=== PATIENT | female | born 1965 | race Native Hawaiian/Other Pacific Islander ===

== ENCOUNTER → 2022-06-24 07:47 | Outpatient (CLI) | payer OTHER, SELFPAY ==
--- NOTE | 2022-06-24 07:51 | DI.MG.S_ITS ---
BILATERAL DIGITAL SCREENING MAMMOGRAM 3D/2D WITH CAD: 06/24/2022 CLINICAL: Routine screening. Comparison is made to exam dated: 11/23/2019 mammogram - [facility]. There are scattered areas of fibroglandular density in both breasts (category b / 25%-50% glandular tissue). Current study was also evaluated with a Computer Aided Detection (CAD) system. No significant masses, calcifications, or other findings are seen in either breast. There has been no significant interval change. IMPRESSION: NEGATIVE There is no mammographic evidence of malignancy. A 1 year screening mammogram is recommended. Based on the Tyrer Cuzick model (a risk assessment model) the patient's lifetime risk is 8.2% and her 10 year risk is 2.5%. According to the ACR, ACS, and NCCN guidelines, an annual breast MRI exam along with mammogram is recommended if the patient's lifetime risk is 20% or greater. This exam was interpreted at Station ID: [id number]. NOTE: For mammograms, a report in lay terms will be sent to the patient. Approximately 15% of breast malignancies will not be visualized mammographically. In the management of a palpable breast mass, a negative mammogram must not discourage biopsy of a clinically suspicious lesion. Electronically Signed By: Deniz [email or web address]:06/24/2022 08:52:28 letter sent: Normal Exam ACR BI-RADS Category 1: Negative [id number]
== END ==
PROVIDERS: PCP Internal Medicine; Referring Provider Internal Medicine; Visit Provider Internal Medicine
DX: Z12.31 Encounter for screening mammogram for malignant neoplasm of breast (principal)
CPT/HCPCS: 77063; 77067

== ENCOUNTER → 2024-08-13 12:03 | Outpatient (CLI) | payer BC, SELFPAY ==
--- NOTE | 2024-08-13 12:04 | DI.MG.S_ITS ---
MM screening mammo BI: 08/13/2024. BI-RADS: 1 CLINICAL: 59-year old female for bilateral screening mammogram. Tyrer-Cuzick lifetime risk of 4.1%. No personal or first-degree family history of breast cancer. PRIOR EXAMS 06/24/2022, MAMMOGRAPHY TECHNIQUE: 2D and 3D (tomosynthesis) digital mammographic views obtained, with additional images as needed for full coverage. Current study was also evaluated with a Computer Aided Detection (CAD) system. DENSITY B. There are scattered areas of fibroglandular density. MAMMOGRAPHY FINDINGS Bilateral: No suspicious mass, asymmetry, microcalcification, or other abnormality seen. IMPRESSION: * No evidence of malignancy. RECOMMENDATIONS Bilateral * Annual screening mammography. OVERALL ASSESSMENT CATEGORY BI-RADS-1: Negative. The [employer] recommends annual screening mammography beginning at age 40 for women with average risk of breast cancer. ELECTRONICALLY SIGNED: David Yao M.D. on 08/15/2024 at 09:48:27 PM PT Interpreting Station ID: [id number]
== END ==
PROVIDERS: PCP Student in an Organized Health Care Education/Training Program; Referring Provider Student in an Organized Health Care Education/Training Program; Visit Provider Student in an Organized Health Care Education/Training Program
DX: Z12.31 Encounter for screening mammogram for malignant neoplasm of breast (principal)
CPT/HCPCS: 77063; 77067

== ENCOUNTER → 2024-08-31 09:21 | Outpatient (CLI) | payer BC, SELFPAY ==
--- NOTE | 2024-08-31 09:23 | DI.RAD.S_ITS ---
PROCEDURE: XR KNEE LT 1TO2V INDICATIONS: 2V for left knee pain TECHNIQUE: 2 views of the left knee were acquired. COMPARISON: None. FINDINGS: Bones: No fractures or dislocations. No suspicious bony lesions. Mild tricompartmental osteoarthrosis. Suprapatellar enthesophyte. Soft tissues: There is a joint effusion. No suspicious soft tissue calcifications. IMPRESSION: No acute osseous abnormality. Small to moderate joint effusion. Mild tricompartmental osteoarthrosis and suprapatellar enthesophyte. If symptoms persist with conservative management, consider cross-sectional imaging such as CT or MRI. Approved by: Ericka Mckay M.D.,Ph.D. on 08/31/2024 at 13:02
[2024-08-31 10:16] LABS: Hemoglobin A1C% w Est Avg Glu 5.6 % (4.0-6.0)
[2024-08-31 10:23] LABS: Alanine Aminotransferase 47 IU/L (<35); Albumin 4.4 g/dL (3.5-5.0); Albumin Globulin Ratio 1.5 (1.0-2.8); Alkaline Phosphatase 89 U/L (38-126); Blood Urea Nitrogen 21 mg/dL (7-17); Calcium 9.7 mg/dL (8.4-10.2); Carbon Dioxide 26 mmol/L (22-32); Chloride 104 mmol/L (98-107); Cholesterol 235 mg/dL (140-199); Estimated Glomerular Filt Rate > 60 mL/min (>60); Globulin 2.9 g/dL (1.7-4.1); Glucose 115 mg/dL (70-99); HDL Cholesterol 105 mg/dL (40-60); HEMOLYSIS 32 (0-50); Potassium 4.3 mmol/L (3.4-5.1); Sodium 138 mmol/L (137-145); Total Protein 7.3 g/dL (6.3-8.2); Triglycerides 97 mg/dL (35-150)
[2024-09-01 22:37] LABS: Hepatitis A Antibody IgM Negative (Negative); Hepatitis B Core Antibody IgM Negative (Negative); Hepatitis C Antibody Non Reactive (Non Reactive)
== END ==
PROVIDERS: PCP Student in an Organized Health Care Education/Training Program; Referring Provider Student in an Organized Health Care Education/Training Program; Visit Provider Student in an Organized Health Care Education/Training Program
DX: M17.12 Unilateral primary osteoarthritis, left knee (principal); M25.562 Pain in left knee; M25.462 Effusion, left knee; R74.8 Abnormal levels of other serum enzymes; R73.9 Hyperglycemia, unspecified; Z13.220 Encounter for screening for lipoid disorders
CPT/HCPCS: 36415; 73560; 80053; 80061; 80074; 83036

== ENCOUNTER 2024-10-27 08:15 | Outpatient (RCR) | payer BC, SELFPAY ==
--- NOTE | 2024-09-23 09:38 | PT.OPPOC ---
Physical, Occupational & Speech Therapy At [facility] Current Diagnoses Pain in left knee (09/23/24) Visit Care Team Role Provider Type Kristina Marks MD Attending Provider Physician Family Provider Primary Care Provider Referring Provider Specialty: Family Practice Obstetrics Address: [address] [place] [address], [id number] Email: [email or web address] Plan Of Care PT OP: Lower Back/Lower Extremity Start: 09/23/24 07:30 Freq: Status: Active Protocol: Document 09/23/24 07:30 [facility] (Rec: 09/23/24 09:04 [facility] [id number]) Out-Patient Physical Therapy Visit Information Visit Information Visit Type Initial Evaluation Visit Start Time 08:20 Number of AUTOMOTIVE WARRANTY ADMINISTRATOR Visits 0 Progress Note Due 10/23/24 Current Condition History of Current Condition Onset Date May Current Complaints L knee History of Current Pt reports pain in post knee HS and calf. It is getting Condition better since May. Xray done but didn't see doctor after. Saw chiropractor and he told her something wrong in med knee and his work has improved pain. Has some swelling post knee. Not sure how got hurt. After a week in gym, got hurt, can't bend L knee like R knee. does still go to the gym. Does elliptical because it feels ok. figure 4 position hurts. when sits for long time and stands, has pain in knee. If she walks too much, all of leg is sore especially med knee. Normally, likes to walk like [employer] and do garden work but can't since knee. LBP sometimes. She works as a massage therapist. Does massage herself and uses foam roller and it helps. Prior Treatments and Xray: Tests IMPRESSION: No acute osseous abnormality. Small to moderate joint effusion. Mild tricompartmental osteoarthrosis and suprapatellar enthesophyte. Treatment Goals Patient/Caregiver be able to walk hills like [employer] and [employer] Goals Balance Tests Single Limb Standing Single Limb- Right 9 sec Single Limb- Left 6 sec Manual Assessments Soft Tissue Assessment Soft Tissue Mobility tenderness calf, HS and med/lat jt line Assessment OP Gait Assessment Comments Gait Comments dec stance time on LLE, hip drop w/wB on LLE, dec knee ROM during gait Posture Evaluation Comments Posture Comments R iliac crest higher, equal greater trochanters, L IR femur, ER tibia Knee Goniometric Range of Motion Knee Measured in Degrees Right Flexion Active ( 141 degrees) Extension Active ( 0 degrees) Left Flexion Active ( 114 degrees) Extension Active ( 0 degrees) Comments pain both Special Tests Knee Special Tests apley Comments positive L Esau Comments neg L ligmentous Comments neg ant/post drawer, varus/valgus SLR Comments pain 61 deg L-positive R neg 90 deg Hip Strength Hip Manual Muscle Testing Right Flexion (L2) 4 Good Extension (S1) 4 Good Abduction 5 Normal Adduction 4+ Good+ External Rotation 4+ Good+ Internal Rotation 4 Good Left Flexion (L2) 3+ Fair+ Extension (S1) 3 Fair Abduction 3 Fair Adduction 3 Fair External Rotation 3+ Fair+ Internal Rotation 3+ Fair+ Comments pain ER Knee Strength Knee Manual Muscle Testing R Flexion (S2) 5 Normal Extension (L3) 5 Normal Left Flexion (S2) 3+ Fair+ Extension (L3) 3+ Fair+ Comments pain both Ankle/Foot Strength Ankle and Foot Manual Muscle Testing Right Dorsiflexion (L4) 5 Normal Plantarflexion (S1) 5 Normal Left Dorsiflexion (L4) 4+ Good+ Plantarflexion (S1) 4+ Good+ Comments PF tested seated B Therapeutic Exercises Supine Exercises nerve glide Supine Exercise Name sciatic Side left Reps/Minutes 15 Comments cues slow stretch Supine Exercise Name knee to opp chest Side bilateral Reps/Minutes 60 sec Comments cues set up Sidelying Exercises clamshell Side bilateral Reps/Minutes 12 hip abd Side bilateral Reps/Minutes 10 Self-Care/Home Management Treatment Education Other Education 8 min: edu to use ice and heat, edu that sciatic n tension found so important to stretch hips and back but also possible meniscus tear, edu using model Physical Therapy Assessment Rehab Potential Rehabilitation Good Potential Evaluation Complexity Number of Personal 3 or More Factors/ Comorbidities Number of Body 4 or More Systems Impaired Clinical Evolving Presentation at Evaluation Impairments Impairments Activity Tolerance,Balance,Functional Activities, Functional Mobility,Gait,Pain,Posture,ROM,Soft Tissue Mobility,Strength,Transfers Goals balance Long Wall Mining Machine Helper Goal (LTG) Pt will be able to do SLS at least 20 sec B w/o inc pain LTG Duration 11/3 ROM Short Term Goal (STG Pt will have 0-130 deg ROM w/o pain ) STG Duration 10/23 Jail Goal (LTG) Pt will have full L knee ROM and at least 80 deg SLR to allow for ability to do stairs and gardening w/o inc pain LTG Duration 11 activities Short Term Goal (STG Pt will have no pain w/transitioning sit to stand ) STG Duration 10/22 Long Wall Mining Machine Helper Goal (LTG) Pt will return to walking [place] and gardening w/o pain LTG Duration 12/19 strength Short Term Goal (STG Pt will demonstrate independence w/HEP by being able to ) perform with no more than min cues. STG Duration 10/24 Long Wall Mining Machine Helper Goal (LTG) Pt will score at least 4+/5 on all BLE MMT and at least 3/5 LPM to show improved strength to allow pt to do long walks w/hills LTG Duration 12/19 Assessment Summary Assessment Pt presents w/L knee pain along w/L post LE pain from HS to calf w/positive SLR, positive apley's and joint line tenderness. This indicates neural tension likely related to pelvic rotation noted, and possible meniscus tear. She did not have a traumatic event but more pain after working out in the gym for about a week. She has limited L knee ROM w/pain and significant LLE weakness . She is typically very active including gardening, walking [place] and works as a massage therapist. She would benefit from skilled PT to address her deficits and return her to typical mobility w/o increased pain. Physical Therapy Plan Frequency and Duration Frequency of 1-2x/wk Treatment Duration of 12 treatment (weeks) Plan of Care Start 09/23/24 Date Plan of Care End 12/22/24 Date Therapeutic Interventions Therapeutic Balance Training,Gait Training,Home Exercise Program, Interventions Joint Mobilizations,Manual Therapy,Neuromuscular Re- education,Patient/Caregiver Education,Self-Care/Home Management,Soft Tissue Mobilization,Taping,Therapeutic Activities,Therapeutic Exercises Modalities Cold Pack/Ice Massage,Electric Stimulation,Hot Packs, Iontophoresis,Ultrasound Next Visit Focus/Plan Next Note Type Treatment Note Next Visit Plan review exercises; advance HEP, manual to pelvis, back, LLE Plan of Care Dates Plan of Care Start Date 09/23/24 Plan of Care End Date 12/22/24 Electronically Signed by: Janel Suero, PT 09/23/24 0938 If you are in agreement with this Plan of Care, please return a signed and dated copy. I have reviewed this Plan of Care and certify that the skilled therapy services above are required to meet the patient?s needs. Physician Signature Date Printed Name and Credentials Clinical Instructor Signature Printed Name and Credentials
--- NOTE | 2024-09-28 09:10 | PT.OTN ---
Current Diagnoses Pain in left knee (09/28/24) Physical Therapy Treatment Note PT OP: Lower Back/Lower Extremity Start: 09/23/24 07:30 Freq: Status: Active Protocol: Document 09/28/24 08:05 [facility] (Rec: 09/28/24 08:58 [facility] [id number]) Out-Patient Physical Therapy Visit Information Visit Information Visit Type Treatment Note Visit Start Time 08:17 Visit Stop Time 08:57 Visit Number 2 Number of MOVABLE BULKHEAD INSTALLER Visits 0 Progress Note Due 10/23/24 OP-PT Subjective Patient Comments Patient Comments pt reports compliance with exercises. pain w/long days of work on her feet Gym Equipment Shuttle Recovery Unilateral Squats Details cues alignment; L Resistance 37# Reps/Time 15 Therapeutic Exercises Supine Exercises bridge Supine Exercise Name SL Side bilateral Reps/Minutes 10 Comments cues core and glute engagement nerve glide Supine Exercise Name sciatic Side bilateral Reps/Minutes 15 Comments cues slow stretch Supine Exercise Name knee to opp chest Side bilateral Reps/Minutes 60 sec Comments cues set up Sidelying Exercises clamshell Side bilateral Equipment Used L1 band Reps/Minutes 15 hip abd Side bilateral Reps/Minutes 15 Comments cues alignment and not letting LE go fwd Standing Exercises stretch Standing Exercise calf Name Side bilateral Reps/Minutes 60 sec x2 Manual Therapy Treatment Consent Patient gave verbal Yes consent for manual treatment Soft Tissue Mobilization LB Body Location L ES and QL Mobilization Type Rolling Intensity/Depth Moderate Body Position Sidelying Comments w/ post dep glute Body Location L piriformis Mobilization Type Rolling,Sustained Pressure Intensity/Depth Moderate Body Position Sidelying calf Body Location L Mobilization Type Rolling Intensity/Depth Moderate Body Position Supine Comments w/APs HS Body Location L Mobilization Type Rolling Intensity/Depth Moderate Body Position Hooklying Comments w/active HS stretch Joint Mobilizations tibiofemoral Body Position Hooklying Comments PA and med tibial glides w/APs in flex Physical Therapy Assessment Goals balance Penitentiary Goal (LTG) Pt will be able to do SLS at least 20 sec B w/o inc pain LTG Duration 11/3 ROM Short Term Goal (STG Pt will have 0-130 deg ROM w/o pain ) STG Duration 9/6 Penitentiary Goal (LTG) Pt will have full L knee ROM and at least 80 deg SLR to allow for ability to do stairs and gardening w/o inc pain LTG Duration 11/3 activities Short Term Goal (STG Pt will have no pain w/transitioning sit to stand ) STG Duration 10/22 Penitentiary Goal (LTG) Pt will return to walking [place] and gardening w/o pain LTG Duration 12/19 strength Short Term Goal (STG Pt will demonstrate independence w/HEP by being able to ) perform with no more than min cues. STG Duration 10/24 Fuel Oil Truck Driver Goal (LTG) Pt will score at least 4+/5 on all BLE MMT and at least 3/5 LPM to show improved strength to allow pt to do long walks w/hills LTG Duration 12/19 Assessment Summary Assessment Pt reports relief with manual and had improved ROM. did well with old exercises with min cues except abd needed more cues for alignment. Physical Therapy Plan Frequency and Duration Frequency of 1-2x/wk Treatment Duration of 12 treatment (weeks) Plan of Care Start 09/23/24 Date Plan of Care End 12/22/24 Date Next Visit Focus/Plan Next Note Type Treatment Note Next Visit Plan review exercises; cont to advance HEP, manual to pelvis , back, LLE
--- NOTE | 2024-10-11 09:32 | PT.OTN ---
Current Diagnoses Pain in left knee (10/11/24) Physical Therapy Treatment Note PT OP: Lower Back/Lower Extremity Start: 09/23/24 07:30 Freq: Status: Active Protocol: Document 10/11/24 08:13 [facility] (Rec: 10/11/24 09:04 [facility] [id number]) Out-Patient Physical Therapy Visit Information Visit Information Visit Type Treatment Note Visit Start Time 08:18 Visit Stop Time 08:58 Visit Number 3 Number of CRUSHER MACHINE OPERATOR Visits 0 Progress Note Due 10/23/24 OP-PT Subjective Patient Comments Patient Comments Pt reports knee is better but still gives her pain sometimes. Therapeutic Exercises Supine Exercises bridge Supine Exercise Name SL Side bilateral Reps/Minutes 8 Comments min cues core and glute engagement nerve glide Supine Exercise Name sciatic Side left Reps/Minutes 8 Comments min cues stretch Supine Exercise Name 1.knee to opp chest 2. figure 4 to chest Side left Reps/Minutes 30 sec ea Comments cues set up Standing Exercises squat Standing Exercise mini squat Name Side bilateral Equipment Used L2 Reps/Minutes 15 Comments cues knee position and push out vs band hip abduction Standing Exercise sidestep Name Side bilateral Equipment Used L1 ankles, L2 at knees Reps/Minutes 15ft ea Comments cues core and posture clamshell Standing Exercise clamshells Name Side bilateral Equipment Used L1 Reps/Minutes 15 ea Comments cues set up and no pelvis rot stretch Standing Exercise calf Name Side bilateral Equipment Used stair Reps/Minutes 60 sec Manual Therapy Treatment Consent Patient gave verbal Yes consent for manual treatment Soft Tissue Mobilization calf Body Location L Mobilization Type Rolling Intensity/Depth Moderate Body Position Supine Comments w/APs HS Body Location L Mobilization Type Rolling Intensity/Depth Moderate Body Position Hooklying Comments w/active HS stretch Joint Mobilizations tibfib Comments distraction c/r; PA w/APs tibiofemoral Comments PA w/APs in flex Taping knee Comments I strip for lat HS and I strip under patella Physical Therapy Assessment Goals balance Devops Engineer Goal (LTG) Pt will be able to do SLS at least 20 sec B w/o inc pain LTG Duration 11/3 ROM Short Term Goal (STG Pt will have 0-130 deg ROM w/o pain ) STG Duration 9/6 Devops Engineer Goal (LTG) Pt will have full L knee ROM and at least 80 deg SLR to allow for ability to do stairs and gardening w/o inc pain LTG Duration 11/3 activities Short Term Goal (STG Pt will have no pain w/transitioning sit to stand ) STG Duration 10/22 Jail Goal (LTG) Pt will return to walking [place] and gardening w/o pain LTG Duration 12/19 strength Short Term Goal (STG Pt will demonstrate independence w/HEP by being able to ) perform with no more than min cues. STG Duration 10/24 Jail Goal (LTG) Pt will score at least 4+/5 on all BLE MMT and at least 3/5 LPM to show improved strength to allow pt to do long walks w/hills LTG Duration 12/19 Assessment Summary Assessment Pt had improved flex on L knee after manual w/less pain . She did well with advanced exercises without increased pain Physical Therapy Plan Frequency and Duration Frequency of 1-2x/wk Treatment Duration of 12 treatment (weeks) Plan of Care Start 09/23/24 Date Plan of Care End 12/22/24 Date Next Visit Focus/Plan Next Note Type Progress Note Next Visit Plan add self mobs, advance strengthening as able
--- NOTE | 2024-10-20 09:46 | PT.OTN ---
Current Diagnoses Pain in left knee (10/20/24) Physical Therapy Treatment Note PT OP: Lower Back/Lower Extremity Start: 09/23/24 07:30 Freq: Status: Active Protocol: Document 10/20/24 09:02 [facility] (Rec: 10/20/24 09:46 [facility] [id number]) Out-Patient Physical Therapy Visit Information Visit Information Visit Type Progress Note Visit Start Time 09:05 Visit Stop Time 09:45 Visit Number 4 Number of CUSTOMER SERVICER Visits 0 Progress Note Due 10/23/24 OP-PT Subjective Patient Comments Patient Comments pt reports improving. Has not walked [place] yet Knee Goniometric Range of Motion Knee Left Flexion Active ( 130 degrees) Hyper-Extension 2 Active Comments pain flex Hip Strength Hip Manual Muscle Testing Right Flexion (L2) 4 Good Extension (S1) 4 Good Abduction 5 Normal Adduction 4+ Good+ External Rotation 5 Normal Internal Rotation 5 Normal Left Flexion (L2) 4+ Good+ Extension (S1) 4 Good Abduction 4 Good Adduction 4+ Good+ External Rotation 4- Good- Internal Rotation 4- Good- Knee Strength Knee Manual Muscle Testing R Flexion (S2) 5 Normal Extension (L3) 5 Normal Left Flexion (S2) 4- Good- Extension (L3) 4+ Good+ Comments pain flex Ankle/Foot Strength Ankle and Foot Manual Muscle Testing Right Dorsiflexion (L4) 5 Normal Plantarflexion (S1) 5 Normal Left Dorsiflexion (L4) 5 Normal Plantarflexion (S1) 5 Normal Comments PF tested seated B Gym Equipment Cable Column (Body Solid) Leg Curl Details cues control Resistance 3 plates (attempted 4 but too much) Reps/Time 15 Therapeutic Exercises Supine Exercises bridge Supine Exercise Name w/HS curl w/ball Side bilateral Equipment Used 55cm ball Reps/Minutes 10 Comments cues control, starting w/calves on ball Sidelying Exercises reverse clamshell Side left Equipment Used L1 Reps/Minutes 15 Comments cues inc range Sitting Exercises HS curl Side left Equipment Used L2 Reps/Minutes 15 Standing Exercises squat Standing Exercise mini squat Name Side bilateral Equipment Used L2 Reps/Minutes 15 Comments cues feet apart w/squat hip abduction Standing Exercise sidestep Name Side bilateral Equipment Used L2 at knees, then feet Reps/Minutes 8ft at knees B, 2x8ft ea at feet Comments cues core and posture clamshell Standing Exercise clamshells Name Side bilateral Equipment Used L2 Reps/Minutes 15 ea Comments cues hips off wall and slow eccentric Other Exercises self mob Other Exercise Name 1. fib PA w/sit backs Reps/Minutes 12 Manual Therapy Treatment Consent Patient gave verbal Yes consent for manual treatment Soft Tissue Mobilization calf Body Location L Mobilization Type Rolling Intensity/Depth Moderate Body Position Supine Comments w/knee flex HS Body Location L Mobilization Type Rolling Intensity/Depth Moderate Body Position Hooklying Comments w/knee flex Joint Mobilizations tibiofemoral Comments PA w/APs in flex Physical Therapy Assessment Goals balance Jail Goal (LTG) Pt will be able to do SLS at least 20 sec B w/o inc pain 10/20-17 sec L, 26 sec R LTG Duration 12/20 ROM Short Term Goal (STG Pt will have 0-130 deg ROM w/o pain ) 10/20-0-130 no pain ext but pain flex STG Duration 10/23 Customer Counter Representative Goal (LTG) Pt will have full L knee ROM and at least 80 deg SLR to allow for ability to do stairs and gardening w/o inc pain 10/20-SLR 90 deg -no pain stairs, can't work too much d/t pain in garden LTG Duration 12/20 activities Short Term Goal (STG Pt will have no pain w/transitioning sit to stand ) STG Duration achieved 10/20 Jail Goal (LTG) Pt will return to walking [place] and gardening w/o pain 10/20-treadmill walking 30 min w/o pain LTG Duration 12/19 strength Short Term Goal (STG Pt will demonstrate independence w/HEP by being able to ) perform with no more than min cues. STG Duration achieved advancing as needed Customer Counter Representative Goal (LTG) Pt will score at least 4+/5 on all BLE MMT and at least 3/5 LPM to show improved strength to allow pt to do long walks w/hills 10/20-improving LTG Duration 12/19 Assessment Summary Assessment Pt making excellent progress w/PT with improved overall strength and mobility but still pain w/flex especially w/knee flex resistance or full ROM. Dec pain w/ functional activities. Cont PT to improve function and dec pain Physical Therapy Plan Frequency and Duration Frequency of 1-2x/wk Treatment Duration of 12 treatment (weeks) Plan of Care Start 09/23/24 Date Plan of Care End 12/22/24 Date Therapeutic Interventions Therapeutic Balance Training,Gait Training,Home Exercise Program, Interventions Joint Mobilizations,Manual Therapy,Neuromuscular Re- education,Patient/Caregiver Education,Self-Care/Home Management,Soft Tissue Mobilization,Taping,Therapeutic Activities,Therapeutic Exercises Modalities Cold Pack/Ice Massage,Electric Stimulation,Hot Packs, Iontophoresis,Ultrasound Next Visit Focus/Plan Next Note Type Treatment Note Next Visit Plan HS and glute strength
--- NOTE | 2024-10-20 10:21 | PT.OPPN ---
Current Diagnoses Pain in left knee (10/27/24) Physical Therapy Progress Note PT OP: Lower Back/Lower Extremity Start: 09/23/24 07:30 Freq: Status: Active Protocol: Document 10/20/24 09:02 [facility] (Rec: 10/20/24 09:46 [facility] [id number]) Out-Patient Physical Therapy Visit Information Visit Information Visit Type Progress Note Visit Start Time 09:05 Visit Stop Time 09:45 Visit Number 4 Number of LIQUOR MERCHANT Visits 0 Progress Note Due 10/23/24 OP-PT Subjective Patient Comments Patient Comments pt reports improving. Has not walked [place] yet Knee Goniometric Range of Motion Knee Measured in Degrees Left Flexion Active ( 130 degrees) Hyper-Extension 2 Active Comments pain flex Hip Strength Hip Manual Muscle Testing Right Flexion (L2) 4 Good Extension (S1) 4 Good Abduction 5 Normal Adduction 4+ Good+ External Rotation 5 Normal Internal Rotation 5 Normal Left Flexion (L2) 4+ Good+ Extension (S1) 4 Good Abduction 4 Good Adduction 4+ Good+ External Rotation 4- Good- Internal Rotation 4- Good- Knee Strength Knee Manual Muscle Testing R Flexion (S2) 5 Normal Extension (L3) 5 Normal Left Flexion (S2) 4- Good- Extension (L3) 4+ Good+ Comments pain flex Ankle/Foot Strength Ankle and Foot Manual Muscle Testing Right Dorsiflexion (L4) 5 Normal Plantarflexion (S1) 5 Normal Left Dorsiflexion (L4) 5 Normal Plantarflexion (S1) 5 Normal Comments PF tested seated B Gym Equipment Cable Column (Body Solid) Leg Curl Details cues control Resistance 3 plates (attempted 4 but too much) Reps/Time 15 Therapeutic Exercises Supine Exercises bridge Supine Exercise Name w/HS curl w/ball Side bilateral Equipment Used 55cm ball Reps/Minutes 10 Comments cues control, starting w/calves on ball Sidelying Exercises reverse clamshell Side left Equipment Used L1 Reps/Minutes 15 Comments cues inc range Sitting Exercises HS curl Side left Equipment Used L2 Reps/Minutes 15 Standing Exercises squat Standing Exercise mini squat Name Side bilateral Equipment Used L2 Reps/Minutes 15 Comments cues feet apart w/squat hip abduction Standing Exercise sidestep Name Side bilateral Equipment Used L2 at knees, then feet Reps/Minutes 8ft at knees B, 2x8ft ea at feet Comments cues core and posture clamshell Standing Exercise clamshells Name Side bilateral Equipment Used L2 Reps/Minutes 15 ea Comments cues hips off wall and slow eccentric Other Exercises self mob Other Exercise Name 1. fib PA w/sit backs Reps/Minutes 12 Manual Therapy Treatment Consent Patient gave verbal Yes consent for manual treatment Soft Tissue Mobilization calf Body Location L Mobilization Type Rolling Intensity/Depth Moderate Body Position Supine Comments w/knee flex HS Body Location L Mobilization Type Rolling Intensity/Depth Moderate Body Position Hooklying Comments w/knee flex Joint Mobilizations tibiofemoral Comments PA w/APs in flex Physical Therapy Assessment Goals balance Senior Living Goal (LTG) Pt will be able to do SLS at least 20 sec B w/o inc pain 10/20-17 sec L, 26 sec R LTG Duration 12/20 ROM Short Term Goal (STG Pt will have 0-130 deg ROM w/o pain ) 10/20-0-130 no pain ext but pain flex STG Duration 10/23 Plant Anatomy Teacher Goal (LTG) Pt will have full L knee ROM and at least 80 deg SLR to allow for ability to do stairs and gardening w/o inc pain 10/20-SLR 90 deg -no pain stairs, can't work too much d/t pain in garden LTG Duration 12/20 activities Short Term Goal (STG Pt will have no pain w/transitioning sit to stand ) STG Duration achieved 10/20 Plant Anatomy Teacher Goal (LTG) Pt will return to walking [place] and gardening w/o pain 10/20-treadmill walking 30 min w/o pain LTG Duration 12/19 strength Short Term Goal (STG Pt will demonstrate independence w/HEP by being able to ) perform with no more than min cues. STG Duration achieved advancing as needed Senior Living Goal (LTG) Pt will score at least 4+/5 on all BLE MMT and at least 3/5 LPM to show improved strength to allow pt to do long walks w/hills 10/20-improving LTG Duration 12/19 Assessment Summary Assessment Pt making excellent progress w/PT with improved overall strength and mobility but still pain w/flex especially w/knee flex resistance or full ROM. Dec pain w/ functional activities. Cont PT to improve function and dec pain Physical Therapy Plan Frequency and Duration Frequency of 1-2x/wk Treatment Duration of 12 treatment (weeks) Plan of Care Start 09/23/24 Date Plan of Care End 12/22/24 Date Therapeutic Interventions Therapeutic Balance Training,Gait Training,Home Exercise Program, Interventions Joint Mobilizations,Manual Therapy,Neuromuscular Re- education,Patient/Caregiver Education,Self-Care/Home Management,Soft Tissue Mobilization,Taping,Therapeutic Activities,Therapeutic Exercises Modalities Cold Pack/Ice Massage,Electric Stimulation,Hot Packs, Iontophoresis,Ultrasound Next Visit Focus/Plan Next Note Type Treatment Note Next Visit Plan HS and glute strength
--- NOTE | 2024-10-27 09:02 | PT.OPDS ---
Current Diagnoses Pain in left knee (10/27/24) Visit Care Team Role Provider Type Kristina Marks MD Attending Provider Physician Family Provider Primary Care Provider Referring Provider Specialty: Family Practice Obstetrics Address: [address] [place] [address], [id number] Email: [email or web address] Visit Number Visit Number 5 Discharge Summary PT OP: Lower Back/Lower Extremity Start: 09/23/24 07:30 Freq: Status: Active Protocol: Document 10/27/24 08:20 [facility] (Rec: 10/27/24 09:02 [facility] [id number]) Out-Patient Physical Therapy Visit Information Visit Information Visit Type Progress Note Visit Start Time 08:20 Visit Stop Time 09:00 Visit Number 5 Number of SEXUAL ASSAULT COUNSELLOR Visits 0 Progress Note Due 11/19/24 OP-PT Subjective Patient Comments Patient Comments pt reports she was able to garden w/o pain. Sometimes her knee hurts when she bends it fully still though. going away to [place] for a month so today will be her last day Posture Evaluation [facility] Postural Classification System Lumbar Protective 2 Mechanism Left AP Lumbar Protective 2 Mechanism Right AP Lumbar Protective 1 Mechanism Left PA Lumbar Protective 1 Mechanism Right PA Hip Strength Hip Manual Muscle Testing Right Flexion (L2) 5 Normal Extension (S1) 4+ Good+ Abduction 5 Normal Adduction 4+ Good+ External Rotation 5 Normal Internal Rotation 5 Normal Left Flexion (L2) 5 Normal Extension (S1) 4+ Good+ Abduction 4+ Good+ Adduction 4+ Good+ External Rotation 4 Good Internal Rotation 5 Normal Knee Strength Knee Manual Muscle Testing R Flexion (S2) 5 Normal Extension (L3) 5 Normal Left Flexion (S2) 4 Good Extension (L3) 5 Normal Comments pain flex Gym Equipment Cable Column (Body Solid) Leg Curl Details cues control Resistance 3 plates Reps/Time 15 Therapeutic Exercises Supine Exercises bridge Supine Exercise Name w/HS curl w/ball Side bilateral Equipment Used 55cm ball Reps/Minutes 10 Comments cues control, starting w/calves on ball nerve glide Supine Exercise Name sciatic Side left Reps/Minutes 5 Comments min cues stretch Supine Exercise Name 1.knee to opp chest 2. figure 4 to chest Side left Reps/Minutes 15 sec ea Standing Exercises lunges Side bilateral Reps/Minutes 12 Comments partial cues foot position and depth squat Standing Exercise mini squat Name Side bilateral Equipment Used L2 Reps/Minutes 15 Comments cues depth hip abduction Standing Exercise sidestep Name Side bilateral Equipment Used L2 on feet Reps/Minutes 12 ft Comments cues core and posture clamshell Standing Exercise clamshells Name Side bilateral Equipment Used L2 Reps/Minutes 15 ea Comments cues hips off wall and slow eccentric stretch Standing Exercise calf Name Side bilateral Equipment Used stair Reps/Minutes 60 sec Manual Therapy Treatment Consent Patient gave verbal Yes consent for manual treatment Soft Tissue Mobilization calf Body Location L Mobilization Type Rolling Intensity/Depth Moderate Body Position Supine Comments w/knee flex HS Body Location L Mobilization Type Rolling Intensity/Depth Moderate Body Position Hooklying Comments w/knee flex Physical Therapy Assessment Goals balance Business Support Coordinator Goal (LTG) Pt will be able to do SLS at least 20 sec B w/o inc pain 10/20-17 sec L, 26 sec R 10/27-14 sec LTG Duration 12/20 ROM Short Term Goal (STG Pt will have 0-130 deg ROM w/o pain ) 10/20-0-130 no pain ext but pain flex STG Duration achieved 140 Alf Goal (LTG) Pt will have full L knee ROM and at least 80 deg SLR to allow for ability to do stairs and gardening w/o inc pain 10/20-SLR 90 deg -no pain stairs, can't work too much d/t pain in garden LTG Duration achieved 10/27 activities Short Term Goal (STG Pt will have no pain w/transitioning sit to stand ) STG Duration achieved 10/20 Business Support Coordinator Goal (LTG) Pt will return to walking [place] and gardening w/o pain 10/20-treadmill walking 30 min w/o pain 10/27-treadmill and gardening going well LTG Duration 12/19 strength Short Term Goal (STG Pt will demonstrate independence w/HEP by being able to ) perform with no more than min cues. STG Duration achieved advancing as needed Business Support Coordinator Goal (LTG) Pt will score at least 4+/5 on all BLE MMT and at least 3/5 LPM to show improved strength to allow pt to do long walks w/hills 10/20-improving LTG Duration 12/19 Assessment Summary Assessment Pt has met most goals at this time and is going away for at least a month. She is able to garden, work and workout in gym w/o pain.DC at this time d/t met most goals and is indep w/HEP. Pt going away for 1 month and to cont HEP Physical Therapy Plan Discharge Physical Therapy Discharge Reasons Goals Met
== END 2024-10-28 13:32 | disposition home or self-care (01) ==
LOC: PHYS 08:15
PROVIDERS: Family Provider Student in an Organized Health Care Education/Training Program; PCP Student in an Organized Health Care Education/Training Program; Referring Provider Student in an Organized Health Care Education/Training Program; Visit Provider Student in an Organized Health Care Education/Training Program
DX: M25.562 Pain in left knee (principal)
CPT/HCPCS: 97110; 97140; 97162; 97535